=== PATIENT | female | born 1995 | race Two or more races ===

== ENCOUNTER 2023-08-28 19:28 | Emergency (ER) | payer OTHER ==
[~2023-08-28] VITALS: Ht 172.7 cm; Wt 78.0 kg
[2023-08-28] MEDS ORDERED: FOLIC ACID20 MG (19:48)
[2023-08-28] MEDS ORDERED: PRENATAL + DHA1 EAC1 (19:48)
[2023-08-28] MEDS ORDERED: ONDANSETRON HCL 2 MG/ML VIAL IV STA (20:12)
[2023-08-28] MEDS ORDERED: 0.9 % SODIUM CHLORIDE 1,000 ML IV STA (20:12)
[2023-08-28 20:51] LABS: HEMATOCRIT 36.3 % (36.0-45.00); HEMOGLOBIN 12.4 g/dL (12.0-15.00); MEAN CELL VOLUME 85.3 fL (80.00-100.00); MEAN CORPUSCULAR HEMOGLOBIN 29.2 pg (27.00-32.0); MEAN CORPUSCULAR HGB CONC 34.2 g/dl (32.0-36.0); PLATELET COUNT 280 K/uL (150-450); RED BLOOD COUNT 4.25 M/uL (4.00-6.00); RED CELL DISTRIBUTION WIDTH 13.9 % (11.5-14.5)
[2023-08-28 21:35] LABS: CREATININE SERUM 0.72 mg/dL (0.55-1.02); GFR 96.45; POTASSIUM 3.51 mEq/L (3.5-5.1)
[2023-08-28] MEDS ORDERED: FAMOTIDINE/PF 20 MG in 0.9 % SODIUM CHLORIDE 8 ML IV PUSH STA (23:21)
[2023-08-29] MEDS ORDERED: PEPCID40 MG PO (01:37)
[2023-08-29] MEDS ORDERED: ONDANSETRON ODT4 MG PO (01:37)
== END 2023-08-29 01:47 ==
LOC: ER 19:28
PROVIDERS: Emergency Medicine
DX: O21.0 Mild hyperemesis gravidarum (principal); Z3A.01 Less than 8 weeks gestation of pregnancy; Z88.6 Allergy status to analgesic agent; Z91.013 Allergy to seafood; Z91.018 Allergy to other foods

== ENCOUNTER 2023-11-30 12:38 | Outpatient (CLI) | payer OTHER ==
[~2023-11-30 12:38] MED LIST: FOLIC ACID20 MG; ONDANSETRON ODT4 MG PO; PEPCID40 MG PO; PRENATAL + DHA1 EAC1
== END 2023-11-30 12:39 | disposition home or self-care (01) ==
LOC: PRENATAL 12:38
PROVIDERS: ATTEND Obstetrics & Gynecology Maternal & Fetal Medicine
DX: O35.9XX0 Maternal care for (suspected) fetal abnormality and damage, unspecified, not applicable or unspecified (principal); O35.3XX0 Maternal care for (suspected) damage to fetus from viral disease in mother, not applicable or unspecified; O44.00 Complete placenta previa NOS or without hemorrhage, unspecified trimester; Z3A.20 20 weeks gestation of pregnancy

== ENCOUNTER 2024-01-12 07:59 | Outpatient (CLI) | payer OTHER ==
[2024-01-12 09:56] LABS: PH,URINE 6.5 (5.0-8.0); URINE APPEARANCE Clear; URINE BACTERIA 246.9 uL (0.0-1933); URINE BILIRRUBIN Negative (NEGATIVE); URINE BLOOD Negative; URINE COLOR Yellow; URINE EPITHELIAL CELLS 27.4 uL (0.0-38.8); URINE GLUCOSE Negative (NEGATIVE); URINE KETONE Negative (NEGATIVE); URINE LEUKOCYTE Negative; URINE NITRATE Negative; URINE PROTEIN Trace (NEGATIVE); URINE RBC 20.3 uL (0.0-20.8); URINE WBC 9.1 uL (0.0-23.2)
[2024-01-12 10:38] LABS: HEMATOCRIT 35.2 % (36.0-45.00); MEAN CELL VOLUME 88.5 fL (80.00-100.00); MEAN CORPUSCULAR HEMOGLOBIN 30.2 pg (27.00-32.0); MEAN CORPUSCULAR HGB CONC 34.2 g/dl (32.0-36.0); PLATELET COUNT 242 K/uL (150-450); RED BLOOD COUNT 3.98 M/uL (4.00-6.00); RED CELL DISTRIBUTION WIDTH 13.7 % (11.5-14.5)
== END 2024-01-12 08:12 | disposition home or self-care (01) ==
LOC: LAB 07:59
PROVIDERS: ATTEND Obstetrics & Gynecology
DX: Z34.03 Encounter for supervision of normal first pregnancy, third trimester (principal)

== ENCOUNTER 2024-02-19 08:02 | Emergency (ER) | payer OTHER ==
[~2024-02-19] VITALS: Ht 175.3 cm; Wt 79.8 kg
[2024-02-19] MEDS ORDERED: HYDROCODONE/CHLORPHEN P-STIREX 5 ML ML PO STA (09:27)
[2024-02-19 09:45] LABS: HEMATOCRIT 33.6 % (36.0-45.00); HEMOGLOBIN 11.5 g/dL (12.0-15.00); MEAN CELL VOLUME 86.1 fL (80.00-100.00); MEAN CORPUSCULAR HEMOGLOBIN 29.4 pg (27.00-32.0); MEAN CORPUSCULAR HGB CONC 34.1 g/dl (32.0-36.0); PLATELET COUNT 232 K/uL (150-450); RED CELL DISTRIBUTION WIDTH 13.5 % (11.5-14.5)
== END 2024-02-19 12:03 | disposition home or self-care (01) ==
LOC: ER 08:03
PROVIDERS: General Practice
DX: B34.8 Other viral infections of unspecified site (principal)

== ENCOUNTER 2024-02-23 03:08 | Inpatient (IN) | payer OTHER ==
[~2024-02-23] VITALS: Ht 175.3 cm; Wt 79.8 kg
[2024-02-23 03:52] VITALS: BP 100/67
[2024-02-23] MEDS ORDERED: RINGERS SOLUTION,LACTATED 1,000 ML IV SCH (05:00)
[2024-02-23] MEDS ORDERED: BETAMETHASONE ACETATE,SOD PHOS 30 MG/5 ML ML IM ONE (05:00)
[2024-02-23] MEDS ORDERED: AMPICILLIN SODIUM 2,000 MG VIAL IV SCH (06:00)
[2024-02-23 07:29] LABS: PH,URINE 6.5 (5.0-8.0); URINE APPEARANCE Clear; URINE BILIRRUBIN Negative (NEGATIVE); URINE BLOOD Large; URINE COLOR Yellow; URINE GLUCOSE Negative (NEGATIVE); URINE KETONE Negative (NEGATIVE); URINE LEUKOCYTE Negative; URINE NITRATE Negative; URINE PROTEIN Trace (NEGATIVE); URINE UROBILINOGEN 0.2 E.U./dl
[2024-02-23 07:30] LABS: URINE BACTERIA 656.2 uL (0.0-1933); URINE EPITHELIAL CELLS 20.3 uL (0.0-38.8); URINE RBC 2.5 uL (0.0-20.8); URINE WBC 14.3 uL (0.0-23.2)
[2024-02-23 07:32] LABS: HEMATOCRIT 33.9 % (36.0-45.00); HEMOGLOBIN 11.3 g/dL (12.0-15.00); MEAN CELL VOLUME 86.8 fL (80.00-100.00); MEAN CORPUSCULAR HEMOGLOBIN 28.9 pg (27.00-32.0); MEAN CORPUSCULAR HGB CONC 33.3 g/dl (32.0-36.0); PLATELET COUNT 219 K/uL (150-450); RED CELL DISTRIBUTION WIDTH 13.2 % (11.5-14.5)
[2024-02-23 07:44] VITALS: BP 102/66
[2024-02-23 07:50] LABS: BILIRUBIN TOTAL 0.27 mg/dL (0.3-1.2); CREATININE SERUM 0.5 mg/dL (0.55-1.02); GFR 145.87; GLOBULINA 4.1 G/DL (2.4-3.5); POTASSIUM 4.26 mEq/L (3.5-5.1); TOTAL PROTEIN 7.1 gm/dL (6.4-8.2)
[2024-02-23 08:13] LABS: URINE CAST 0.15 uL (0.0-1.40)
[2024-02-23 11:50] VITALS: BP 90/61
[2024-02-23 15:22] VITALS: BP 112/66
[2024-02-23 19:00] VITALS: BP 104/71
[2024-02-23 23:02] VITALS: BP 107/64; O2SAT 99
[2024-02-24 03:05] VITALS: BP 90/55
[2024-02-24] MEDS ORDERED: BETAMETHASONE ACETATE,SOD PHOS 30 MG/5 ML ML IM NR (06:00)
[2024-02-24 07:17] VITALS: BP 93/54
[2024-02-24 11:26] VITALS: BP 101/55
[2024-02-24 14:19] VITALS: BP 124/77
[2024-02-24 16:00] VITALS: BP 110/64
[2024-02-24] MEDS ORDERED: GUAIFENESIN 200 MG/10 ML BLIST.PACK PO SCH (18:00)
[2024-02-25 00:49] VITALS: BP 108/67
[2024-02-25 08:06] VITALS: BP 100/63
[2024-02-25 17:35] VITALS: BP 117/71
[2024-02-26] VITALS: BP 95/56
[2024-02-26 08:49] VITALS: BP 112/70
== END 2024-02-26 09:57 | disposition home or self-care (01) | DRG 833 ==
LOC: ER 03:10 → LDR 04:57 → OB/GYN 02-24 11:02
PROVIDERS: ADMIT Obstetrics & Gynecology; ATTEND Obstetrics & Gynecology
PROC: 4A1HXCZ Monitoring of Products of Conception, Cardiac Rate, External Approach (ICD-10-PCS; principal; 2024-02-23)
PROC: BY4FZZZ Ultrasonography of Third Trimester, Single Fetus (ICD-10-PCS; 2024-02-25)
PROC: BU4CZZZ Ultrasonography of Uterus and Ovaries (ICD-10-PCS; 2024-02-25)
DX: O46.8X3 Other antepartum hemorrhage, third trimester (principal); O26.843 Uterine size-date discrepancy, third trimester; O36.8130 Decreased fetal movements, third trimester, not applicable or unspecified; O26.853 Spotting complicating pregnancy, third trimester; Z3A.32 32 weeks gestation of pregnancy; Z20.822 Contact with and (suspected) exposure to COVID-19

== ENCOUNTER 2024-02-29 15:58 | Inpatient (IN) | payer OTHER ==
[~2024-02-29] VITALS: Ht 175.3 cm; Wt 79.4 kg
[2024-02-29 16:40] VITALS: BP 106/64
[2024-02-29] MEDS ORDERED: AMPICILLIN SODIUM 1,000 MG in 0.9 % SODIUM CHLORIDE 100 ML IV SCH (17:30)
[2024-02-29 17:52] LABS: HEMATOCRIT 32.5 % (36.0-45.00); HEMOGLOBIN 10.9 g/dL (12.0-15.00); MEAN CELL VOLUME 86.2 fL (80.00-100.00); MEAN CORPUSCULAR HEMOGLOBIN 28.8 pg (27.00-32.0); MEAN CORPUSCULAR HGB CONC 33.4 g/dl (32.0-36.0); PLATELET COUNT 250 K/uL (150-450); RED BLOOD COUNT 3.77 M/uL (4.00-6.00); RED CELL DISTRIBUTION WIDTH 13.3 % (11.5-14.5)
[2024-02-29 17:59] LABS: PH,URINE 5.5 (5.0-8.0); URINE APPEARANCE Cloudy; URINE BILIRRUBIN Negative (NEGATIVE); URINE BLOOD Negative; URINE COLOR Yellow; URINE KETONE Trace (NEGATIVE); URINE LEUKOCYTE Negative; URINE NITRATE Negative; URINE PROTEIN Trace (NEGATIVE)
[2024-02-29 18:06] LABS: URINE BACTERIA 178.8 uL (0.0-1933); URINE EPITHELIAL CELLS 37.7 uL (0.0-38.8); URINE RBC 4.5 uL (0.0-20.8); URINE WBC 16.3 uL (0.0-23.2)
[2024-02-29 18:08] LABS: URINE CAST 0.76 uL (0.0-1.40); URINE GLUCOSE >=1000 MG/DL (NEGATIVE)
[2024-02-29 18:13] LABS: INR < 0.93; PROTHROMBIN TIME 9.8 SECONDS (9.0-11.5)
[2024-02-29 18:18] LABS: BILIRUBIN TOTAL 0.2 mg/dL (0.3-1.2); CALCIUM 8.7 mg/dL (8.5-10.1); CREATININE SERUM 0.6 mg/dL (0.55-1.02); GFR 118.19; GLOBULINA 3.9 G/DL (2.4-3.5); POTASSIUM 3.97 mEq/L (3.5-5.1); TOTAL PROTEIN 6.9 gm/dL (6.4-8.2)
[2024-02-29 19:14] VITALS: BP 108/60
[2024-02-29 23:14] VITALS: BP 108/67
[2024-03-01 03:00] VITALS: BP 98/60
[2024-03-01 07:09] VITALS: BP 112/63; O2SAT 99
[2024-03-01 11:11] VITALS: BP 100/60
[2024-03-01 15:21] VITALS: BP 130/77
[2024-03-02 03:00] VITALS: BP 104/67
[2024-03-02] MEDS ORDERED: PNV,CALCIUM 72/IRON/FOLIC ACID 1 TAB TABLET PO SCH (09:00)
[2024-03-02 09:19] VITALS: BP 102/62
[2024-03-02] MEDS ORDERED: NIFEDIPINE 30 MG TAB.SA.OSM PO NR (12:50)
[2024-03-02 15:31] VITALS: BP 103/63
[2024-03-03 01:00] VITALS: BP 101/63
[2024-03-03] MEDS ORDERED: NIFEDIPINE 30 MG TAB.SA.OSM PO SCH (09:00)
[2024-03-03 10:05] VITALS: BP 102/63
[2024-03-03 16:00] VITALS: BP 102/65
[2024-03-03] MEDS ORDERED: GUAIFENESIN 200 MG/10 ML BLIST.PACK PO PRN (20:15)
[2024-03-04] VITALS: BP 105/63
[2024-03-04 07:50] VITALS: BP 107/68
[2024-03-04] MEDS ORDERED: BETAMETHASONE ACETATE,SOD PHOS 30 MG/5 ML ML IM SCH (13:40)
[2024-03-04] MEDS ORDERED: BETAMETHASONE ACETATE,SOD PHOS 30 MG/5 ML ML IM STA (13:41)
[2024-03-04 17:56] VITALS: BP 124/98
[2024-03-05 00:40] VITALS: BP 114/58
[2024-03-05 08:06] VITALS: BP 111/67
[2024-03-05] MEDS ORDERED: BETAMETHASONE ACETATE,SOD PHOS 30 MG/5 ML ML IM NR (14:00)
[2024-03-05 15:30] VITALS: BP 102/60
[2024-03-06 01:42] VITALS: BP 120/69
[2024-03-06 08:00] VITALS: BP 121/58; BP 143/70
[2024-03-06 16:00] VITALS: BP 115/78
[2024-03-07 01:25] VITALS: BP 110/60
[2024-03-07] MEDS ORDERED: FAMOtidine 20 MG TABLET PO SCH (01:45)
[2024-03-07 08:42] VITALS: BP 114/69
[2024-03-07 16:00] VITALS: BP 103/62
[2024-03-08 01:24] VITALS: BP 100/60
[2024-03-08 07:50] VITALS: BP 120/74
[2024-03-08] MEDS ORDERED: Procardia Xl 30MG TA PO (12:29)
[2024-03-08] MEDS ORDERED: PRENATE ENHANC1 EACH PO (12:30)
[2024-03-08] MEDS ORDERED: FAMOTIDINE20 MG PO (12:34)
== END 2024-03-08 13:12 | disposition home or self-care (01) | DRG 833 ==
LOC: LDR 15:58 → OB/GYN 03-01 13:17
PROVIDERS: ADMIT Obstetrics & Gynecology; ATTEND Obstetrics & Gynecology
PROC: 4A1HXCZ Monitoring of Products of Conception, Cardiac Rate, External Approach (ICD-10-PCS; principal; 2024-02-29)
DX: O46.8X3 Other antepartum hemorrhage, third trimester (principal); O99.013 Anemia complicating pregnancy, third trimester; D64.9 Anemia, unspecified; Z3A.33 33 weeks gestation of pregnancy; Z20.822 Contact with and (suspected) exposure to COVID-19

== ENCOUNTER 2024-03-28 15:13 | Inpatient (IN) | payer OTHER ==
[~2024-03-28] VITALS: Ht 172.7 cm; Wt 80.7 kg
[2024-03-28 15:11] VITALS: BP 107/64
[~2024-03-28 15:13] MED LIST changes: +FAMOTIDINE20 MG PO; +PRENATE ENHANC1 EACH PO; +Procardia Xl 30MG TA PO
[2024-03-28] MEDS ORDERED: RINGERS SOLUTION,LACTATED 1,000 ML IV SCH (15:30)
[2024-03-28 16:18] LABS: HEMATOCRIT 38.2 % (36.0-45.00); HEMOGLOBIN 12.7 g/dL (12.0-15.00); MEAN CELL VOLUME 87.1 fL (80.00-100.00); MEAN CORPUSCULAR HEMOGLOBIN 28.9 pg (27.00-32.0); MEAN CORPUSCULAR HGB CONC 33.2 g/dl (32.0-36.0); PLATELET COUNT 223 K/uL (150-450); RED BLOOD COUNT 4.38 M/uL (4.00-6.00); RED CELL DISTRIBUTION WIDTH 15.5 % (11.5-14.5)
[2024-03-28 16:41] LABS: INR < 0.93; PARTIAL THROMBOPLASTIN TIME 26.1 SECONDS (22.0-34.0)
[2024-03-28 16:43] LABS: ALBUMIN 3.3 gm/dL (3.4-5.0); BILIRUBIN TOTAL 0.42 mg/dL (0.3-1.2); CALCIUM 9.6 mg/dL (8.5-10.1); CREATININE SERUM 0.7 mg/dL (0.55-1.02); GFR 98.93; GLOBULINA 4.4 G/DL (2.4-3.5); POTASSIUM 4.1 mEq/L (3.5-5.1); TOTAL PROTEIN 7.7 gm/dL (6.4-8.2)
[2024-03-28 16:49] LABS: URINE APPEARANCE CLOUDY; URINE BILIRRUBIN NEGATIVE (NEGATIVE); URINE BLOOD LARGE; URINE COLOR YELLOW; URINE GLUCOSE NEGATIVE (NEGATIVE); URINE KETONE 40 (NEGATIVE)
[2024-03-28 16:50] LABS: PH,URINE 5.5; URINE BACTERIA FEW; URINE LEUKOCYTE TRACE; URINE NITRATE NEGATIVE; URINE PROTEIN TRACE (NEGATIVE); URINE RBC 13-18 /HPF
[2024-03-28 19:12] VITALS: BP 115/68; O2SAT 100
[2024-03-28] MEDS ORDERED: ACETAMINOPHEN 500 MG GEL..CAP PO ONE (22:45)
[2024-03-28 23:22] VITALS: BP 110/69
[2024-03-29 03:06] VITALS: BP 117/67
[2024-03-29 07:33] VITALS: BP 108/63
[2024-03-29] MEDS ORDERED: CITRIC ACID/SODIUM CITRATE 30 ML BLIST.PACK PO ONE (10:30)
[2024-03-29 11:39] VITALS: BP 106/67
[2024-03-29 14:37] VITALS: BP 139/80
[2024-03-29 18:00] VITALS: BP 122/72
[2024-03-29] MEDS ORDERED: FAMOtidine 20 MG TABLET PO SCH (18:45)
[2024-03-30 00:24] VITALS: BP 118/68
[2024-03-30 08:01] VITALS: BP 107/67
[2024-03-30 16:30] VITALS: BP 134/80
[2024-03-31 00:20] VITALS: BP 116/76
[2024-03-31 07:51] VITALS: BP 121/72
[2024-03-31 16:00] VITALS: BP 133/74
[2024-04-01] VITALS: BP 136/83
[2024-04-01 12:07] VITALS: BP 127/73
[2024-04-01 16:02] VITALS: BP 127/81
[2024-04-01] MEDS ORDERED: FAMOtidine 20 MG TABLET PO SCH (21:00)
[2024-04-02 01:01] VITALS: BP 135/86
[2024-04-02 08:22] VITALS: BP 118/69
[2024-04-02 16:07] VITALS: BP 123/73
[2024-04-03] VITALS (9 sets, daily range): BP systolic 102–141; BP diastolic 36–78
[2024-04-03] MEDS ORDERED: OXYTOCIN 500 ML IV SCH (07:45)
[2024-04-03] MEDS ORDERED: MEPERIDINE HCL/PF 50 MG/ML VIAL IV ONE (10:40)
[2024-04-03] MEDS ORDERED: PROMETHAZINE HCL 50 MG/ML AMPUL IV ONE (10:45)
[2024-04-03] MEDS ORDERED: OXYTOCIN 10 UNITS/ML VIAL IV ONE (15:45)
[2024-04-03] MEDS ORDERED: OXYTOCIN 1,000 ML IV SCH (16:00)
[2024-04-03] MEDS ORDERED: CHLORHEXIDINE GLUCONATE 120 ML BOTTLE TOP ONE (16:00)
[2024-04-03] MEDS ORDERED: ACETAMINOPHEN 500 MG GEL..CAP PO PRN (16:00)
[2024-04-03] MEDS ORDERED: SIMETHICONE 125 MG CAPSULE PO SCH (17:00)
[2024-04-03] MEDS ORDERED: LIDOCAINE HCL 1% 10ML VIAL PERCUT ONE (20:00)
[2024-04-04 03:07] VITALS: BP 126/73
[2024-04-04 09:36] VITALS: BP 114/77
[2024-04-04 13:00] VITALS: BP 111/69
[2024-04-05] VITALS: BP 118/75
[2024-04-05 10:49] VITALS: BP 130/75
== END 2024-04-05 14:03 | disposition home or self-care (01) | DRG 768 ==
LOC: LDR 15:13 → OB/GYN 15:13 → LDR 04-01 21:36 → OB/GYN 04-01 21:39
PROVIDERS: ADMIT Obstetrics & Gynecology; ATTEND Obstetrics & Gynecology
PROC: 4A1HXCZ Monitoring of Products of Conception, Cardiac Rate, External Approach (ICD-10-PCS; 2024-03-28)
PROC: 10E0XZZ Delivery of Products of Conception, External Approach (ICD-10-PCS; principal; 2024-04-03)
PROC: 0DQR0ZZ Repair Anal Sphincter, Open Approach (ICD-10-PCS; 2024-04-03)
PROC: 3E033VJ Introduction of Other Hormone into Peripheral Vein, Percutaneous Approach (ICD-10-PCS; 2024-04-03)
DX: O70.21 Third degree perineal laceration during delivery, IIIa (principal); Z37.0 Single live birth; O46.8X3 Other antepartum hemorrhage, third trimester; O99.02 Anemia complicating childbirth; D64.9 Anemia, unspecified; Z20.822 Contact with and (suspected) exposure to COVID-19; Z3A.37 37 weeks gestation of pregnancy

== ENCOUNTER 2024-04-25 04:02 | Emergency (ER) | payer OTHER ==
[~2024-04-25] VITALS: Ht 174 cm; Wt 74.8 kg
[2024-04-25] MEDS ORDERED: CYCLOBENZAPRINE HCL 5 MG TABLET PO STA (06:22)
[2024-04-25] MEDS ORDERED: DEXAMETHASONE SODIUM PHOSPHATE 4 MG/ML VIAL IM STA (06:23)
== END 2024-04-25 06:44 | disposition home or self-care (01) ==
LOC: ER 04:04
DX: G24.3 Spasmodic torticollis (principal); Z88.6 Allergy status to analgesic agent; Z91.013 Allergy to seafood; Z91.018 Allergy to other foods

== ENCOUNTER → 2024-09-11 | Emergency (ER) | payer OTHER ==
[~2024-09-11] VITALS: Ht 175.3 cm; Wt 77.1 kg
[~2024-09-11] MED LIST changes: +DEXAMETHASONE SODIUM PHOSPHATE 4 MG/ML VIAL IM ONE; +DEXAMETHASONE SODIUM PHOSPHATE 4 MG/ML VIAL ONE; +MEDROLPACK PO; +NORFLEX100MG PO; +ORPHENADRINE CITRATE 30 MG/ML AMPUL IM ONE; +ORPHENADRINE CITRATE 30 MG/ML AMPUL ONE
== END | disposition home or self-care (01) ==
LOC: ER 07:08
DX: M62.838 Other muscle spasm (principal); J45.909 Unspecified asthma, uncomplicated; Z88.6 Allergy status to analgesic agent; Z91.013 Allergy to seafood; Z91.018 Allergy to other foods
CPT/HCPCS: 96372; 99282; J1100; J2360

== ENCOUNTER 2024-10-27 13:53 | Emergency (ER) | payer OTHER ==
[~2024-10-27] VITALS: Ht 175.3 cm; Wt 78.0 kg
[~2024-10-27 13:53] MED LIST changes: -DEXAMETHASONE SODIUM PHOSPHATE 4 MG/ML VIAL IM ONE; -DEXAMETHASONE SODIUM PHOSPHATE 4 MG/ML VIAL ONE; -ORPHENADRINE CITRATE 30 MG/ML AMPUL IM ONE; -ORPHENADRINE CITRATE 30 MG/ML AMPUL ONE
[2024-10-27] MEDS ORDERED: ACETAMINOPHEN 500 MG GEL..CAP PO STA (17:41)
[2024-10-27] MEDS ORDERED: HYDROCODONE/CHLORPHEN P-STIREX 5 ML ML PO STA (17:42)
[2024-10-27] MEDS ORDERED: ACETAMINOPHEN 500 MG GEL..CAP PO ONE (17:52)
[2024-10-27 18:30] LABS: BASO % 0.5 % (0.1-1.2); EOS # 0.35 (0.04-0.54); EOS % 5.4 % (0.7-7.0); HEMATOCRIT 40.7 % (34.1-44.9); LYMPH # 1.45 (1.18-3.74); LYMPH % 22.2 % (19.3-53.1); MEAN CORPUSCULAR HEMOGLOBIN 26.7 pg (25.6-32.2); MONO # 0.96 (0.24-0.82); NEUT # 3.71 (1.56-6.13); NEUT % 56.9 % (34.0-71.1); PLATELET COUNT 262 K/uL (163-369); RED BLOOD COUNT 4.86 M/uL (3.93-5.22); RED CELL DISTRIBUTION WIDTH 15.2 % (11.6-14.4)
[2024-10-27 18:44] LABS: MONO % 14.7 % (4.7-12.5)
[2024-10-27 19:15] LABS: INFLUENZA A AG NEGATIVE (NEGATIVE); INFLUENZA B AG NEGATIVE (NEGATIVE)
[2024-10-27 19:16] LABS: COVID-19 AG POSITIVE (NEGATIVE)
== END 2024-10-27 20:44 | disposition home or self-care (01) ==
LOC: ER 13:53
DX: U07.1 COVID-19 (principal); J06.9 Acute upper respiratory infection, unspecified; Z88.6 Allergy status to analgesic agent; Z91.013 Allergy to seafood; Z91.018 Allergy to other foods

== ENCOUNTER → 2024-12-30 08:12 | Outpatient (CLI) | payer OTHER ==
[2024-12-30 08:57] LABS: BASO % 0.7 % (0.1-1.2); EOS # 0.27 (0.04-0.54); EOS % 3.7 % (0.7-7.0); LYMPH # 1.84 (1.18-3.74); LYMPH % 25.2 % (19.3-53.1); MEAN PLATELET VOLUME 9.60 fl (9.4-12.4); MONO # 0.53 (0.24-0.82); MONO % 7.3 % (4.7-12.5); NEUT # 4.61 (1.56-6.13); NEUT % 63.0 % (34.0-71.1); RED CELL DISTRIBUTION WIDTH 14.0 % (11.6-14.4)
[2024-12-30 09:51] LABS: INR 0.96
== END | disposition home or self-care (01) ==
LOC: LAB 08:12
PROVIDERS: ATTEND Orthopaedic Surgery Hand Surgery
DX: D68.9 Coagulation defect, unspecified (principal)

== ENCOUNTER 2025-02-02 12:58 | Outpatient (CLI) | payer OTHER | END 2025-02-02 13:02 | disposition home or self-care (01) | LOC: RAD 12:58 | PROVIDERS: ATTEND Orthopaedic Surgery Hand Surgery | DX: M24.542 Contracture, left hand (principal); S62.609A Fracture of unspecified phalanx of unspecified finger, initial encounter for closed fracture ==